=== PATIENT | female | born 1995 | race Caucasian/White ===

== ENCOUNTER → 2022-01-08 | Outpatient (CLI) | payer BC ==
[2022-01-08 14:22] LABS: HEMATOCRIT 38.6 % (36.0-47.0); HEMOGLOBIN 13.4 g/dl (12.0-15.5); MEAN CORPUSCULAR HEMOGLOBIN 32.2 pg (27.0-33.0); MEAN CORPUSCULAR HGB CONC 34.7 g/dl (32.0-36.5); MEAN CORPUSCULAR VOLUME 92.8 fl (80.0-96.0); PLATELET COUNT, AUTOMATED 251 10^3/uL (150-450); RED BLOOD COUNT 4.16 10^6/uL (4.00-5.40); WHITE BLOOD COUNT 12.8 10^3/uL (4.0-10.0)
[2022-01-08 16:03] LABS: GC DNA AMPLIFICATION NEGATIVE (NEGATIVE)
[2022-01-08 16:12] LABS: HEPATITIS C VIRUS ABY INDEX 0.2 INDEX (<0.8); HIV 1&2 SCREEN CENTAUR NEGATIVE (NEGATIVE)
== END ==
LOC: M LAB 12:34
PROVIDERS: ATTEND Obstetrics & Gynecology
DX: Z34.82 Encounter for supervision of other normal pregnancy, second trimester (principal); Z3A.00 Weeks of gestation of pregnancy not specified

== ENCOUNTER → 2022-03-11 | Outpatient (REF) | payer BC | LOC: M PLALAB 08:52 | PROVIDERS: ATTEND Advanced Practice Midwife | DX: Z34.02 Encounter for supervision of normal first pregnancy, second trimester (principal) ==

== ENCOUNTER → 2022-04-10 | Outpatient (CLI) | payer BC ==
[2022-04-10 13:38] LABS: HEMOGLOBIN 11.9 g/dl (12.0-15.5); MEAN CORPUSCULAR HEMOGLOBIN 31.6 pg (27.0-33.0); MEAN CORPUSCULAR HGB CONC 33.1 g/dl (32.0-36.5); MEAN CORPUSCULAR VOLUME 95.7 fl (80.0-96.0); PLATELET COUNT, AUTOMATED 225 10^3/uL (150-450); RED BLOOD COUNT 3.76 10^6/uL (4.00-5.40); WHITE BLOOD COUNT 13.1 10^3/uL (4.0-10.0)
== END ==
LOC: M PLALAB 10:32
PROVIDERS: ATTEND Advanced Practice Midwife
DX: Z34.02 Encounter for supervision of normal first pregnancy, second trimester (principal)

== ENCOUNTER → 2022-05-19 | Outpatient (CLI) | payer BC ==
[2022-05-19 22:28] LABS: BILIRUBIN,DIRECT 0.1 MG/DL (0.0-0.2); BILIRUBIN,TOTAL 0.3 MG/DL (0.2-1.0); TOTAL PROTEIN 6.6 GM/DL (6.4-8.2)
== END ==
LOC: M PLALAB 15:21
PROVIDERS: ATTEND Advanced Practice Midwife
DX: Z36.9 Encounter for antenatal screening, unspecified (principal); L29.9 Pruritus, unspecified

== ENCOUNTER → 2022-06-24 | Outpatient (REF) | payer BC | LOC: M SFHCWAGY 09:58 | PROVIDERS: ATTEND Obstetrics & Gynecology | DX: Z34.03 Encounter for supervision of normal first pregnancy, third trimester (principal) ==

== ENCOUNTER → 2025-08-18 | Outpatient (CLI) | payer BC ==
[~2025-08-18] MED LIST: PRENTAB9 PO
== END ==
LOC: M PLALAB 10:17
PROVIDERS: ATTEND Specialist
DX: O00.90 Unspecified ectopic pregnancy without intrauterine pregnancy (principal); N92.6 Irregular menstruation, unspecified

== ENCOUNTER → 2025-08-19 | Outpatient (CLI) | payer BC | LOC: M LAB 08:36 | PROVIDERS: ATTEND Specialist | DX: N92.6 Irregular menstruation, unspecified (principal) ==